=== PATIENT | male | born 1975 | race Two or more races ===

== ENCOUNTER → 2023-10-05 | Emergency (ER) | payer OTHER ==
[~2023-10-05] VITALS: Ht 165.1 cm; Wt 84.1 kg
[~2023-10-05] MED LIST: AMLO-257 PO
[2023-10-05 12:37] VITALS: TEMP 98.2
[2023-10-05 13:27] LABS: BASOPHILS % (AUTO) 0.8 % (0.0-2.0); EOSINOPHILS % (AUTO) 1.1 % (1.0-6.0); HEMATOCRIT 44.2 % (41-53); HEMOGLOBIN 14.5 g/dL (13.5-17.5); LYMPHOCYTES # (AUTO) 2.5 K/uL (1.0-4.8); MEAN CORPUSCULAR HEMOGLOBIN 26.1 pg (26.0-34.0); MEAN CORPUSCULAR HGB CONC 32.8 G/dL (31.0-37.0); MEAN CORPUSCULAR VOLUME 80 fL (80-100); MONOCYTES # (AUTO) 0.5 K/uL (0.1-1.0); MONOCYTES % (AUTO) 6.9 % (2.0-9.0); NEUTROPHILS % (AUTO) 56.2 % (40.0-70.0); PLATELET COUNT (AUTO) 348 K/uL (150-450); RED BLOOD CELL COUNT(AUTO) 5.56 MIL/uL (4.50-5.90); WHITE BLOOD COUNT (AUTO) 7.2 K/uL (4.5-11.0)
[2023-10-05 13:36] LABS: ANION GAP 9 mmol/L (8-16); CALCIUM, TOTAL 9.2 mg/dL (8.8-10.5); CARBON DIOXIDE 26 mmol/L (22-29); CHLORIDE 101 mmol/L (98-107); CREATININE 0.91 mg/dL (0.60-1.30); GLOMERULAR FILTR. RATE CALC > 60 mL/min (>60); GLUCOSE,RANDOM 96 mg/dL (70-110); POTASSIUM 3.7 mmol/L (3.5-5.1); SODIUM SERUM 136 mmol/L (136-145); UREA NITROGEN, BLOOD 15 mg/dL (7-18)
[2023-10-05 13:44] LABS: TROPONIN I-HIGH SENSITIVITY 4 ng/L (<76)
[2023-10-05 14:20] VITALS: BP 144/91; PULSE 68; RESP 16
== END | disposition home or self-care (01) ==
LOC: EMS 12:33
DX: R51.9 Headache, unspecified (principal); I10 Essential (primary) hypertension; Z79.899 Other long term (current) drug therapy
CPT/HCPCS: 80048; 84484; 85025; 93005; 99284